=== PATIENT | female | born 1945 | race Caucasian/White ===

== ENCOUNTER 2020-01-31 10:36 | Outpatient (CLI) | payer MEDICARE ==
--- NOTE | 2020-01-31 13:15 | RAD ---
CHEST 2 VIEWS: Date: 02/10/2020 HISTORY: Cough, checkup. COMPARISON: None. FINDINGS: Heart size is within normal limits. There is some minimal patchy interstitial and ground-glass opacit y changes in the left mid lung zone and left upper lobe. This is nonspecific but certainly could sugg est some patchy pneumonia or pneumonitis, including COVID pneumonia. The right lung appears grossly c lear. No pleural effusion. Mild biapical pleural thickening. IMPRESSION: Minimal patchy parenchymal changes in the left mid and upper lung zones, possibly represent some atyp ical pneumonia or pneumonitis, including COVID pneumonia. Short-term follow-up study over several wee ks is suggested to document clearing or stability, or worsening. CODE T. POS: OFF
== END 2020-01-31 10:37 | disposition home or self-care (01) ==
LOC: BICRAD 10:36
PROVIDERS: ATTEND Internal Medicine Nephrology
DX: R05 Cough (principal); R91.8 Other nonspecific abnormal finding of lung field
CPT/HCPCS: 71046

== ENCOUNTER 2020-02-13 11:26 | Outpatient (CLI) | payer MEDICARE ==
--- NOTE | 2020-02-13 11:44 | RAD ---
EXAM: Two views chest PROVIDED CLINICAL HISTORY: Follow-up COMPARISON: 01/31/2020 FINDINGS: Cardiac and mediastinal silhouette appears unchanged. Lungs appear free of significant opacity. No pl eural fluid or pneumothorax apparent. Surgical clips right upper quadrant. IMPRESSION: Interval resolution of previously described pulmonary parenchymal opacities.
== END 2020-02-13 11:27 | disposition home or self-care (01) ==
LOC: BICRAD 11:26
PROVIDERS: ATTEND Internal Medicine Nephrology
DX: Z11.59 Encounter for screening for other viral diseases (principal); R91.8 Other nonspecific abnormal finding of lung field
CPT/HCPCS: 71046

== ENCOUNTER 2020-06-30 14:11 | Outpatient (CLI) | payer MEDICARE | END 2020-06-30 14:12 | disposition home or self-care (01) | LOC: BICRAD 14:11 | PROVIDERS: ATTEND Internal Medicine Nephrology | DX: R06.00 Dyspnea, unspecified (principal) | CPT/HCPCS: 71046 ==

== ENCOUNTER 2020-11-10 15:21 | Outpatient (CLI) | payer MEDICARE | END 2020-11-10 15:22 | disposition home or self-care (01) | LOC: BICRAD 15:21 | PROVIDERS: ATTEND Internal Medicine Nephrology | DX: G89.11 Acute pain due to trauma (principal); M47.812 Spondylosis without myelopathy or radiculopathy, cervical region; M17.11 Unilateral primary osteoarthritis, right knee; M47.814 Spondylosis without myelopathy or radiculopathy, thoracic region | CPT/HCPCS: 72040; 72072 ==

== ENCOUNTER 2023-11-23 12:55 | Outpatient (CLI) | payer MEDICARE | END 2023-11-23 12:56 | disposition home or self-care (01) | LOC: BICCT 12:55 | PROVIDERS: ATTEND Internal Medicine Nephrology | DX: M25.552 Pain in left hip (principal); M25.551 Pain in right hip; M16.0 Bilateral primary osteoarthritis of hip ==

== ENCOUNTER 2023-12-20 13:22 | Outpatient (CLI) | payer MEDICARE | END 2023-12-20 13:23 | disposition home or self-care (01) | LOC: BICMAMMO 13:22 | PROVIDERS: ATTEND Internal Medicine Nephrology | DX: N63.10 Unspecified lump in the right breast, unspecified quadrant (principal); R92.8 Other abnormal and inconclusive findings on diagnostic imaging of breast | CPT/HCPCS: 76642; 77066; G0279 ==